=== PATIENT | male | born 2005 | race African-American/Black ===

== ENCOUNTER 2025-03-24 21:46 | Emergency (ER) | payer OTHER ==
[2025-03-24] MEDS ORDERED: levETIRAcetam 500 MG (5 mL) VIAL ONE (22:10)
[2025-03-24 22:33] LABS: Acetaminophen Less than 10 mcg/mL (Less than 10); Salicylate Less than 8.0 mg/dL (Less than 8.0)
[2025-03-24 22:34] LABS: ALT (SGPT) 23 U/L (Less than 45); AST (SGOT) 26 U/L (11-34); Albumin 4.1 g/dL (3.1-4.5); Alkaline Phosphatase 125 U/L (40-110); Anion Gap 13 mmol/L (10-20); BUN (Urea Nitrogen) 13 mg/dL (8.9-20.6); Bilirubin, Total 0.3 mg/dL (0.3-1.2); Calc. Creatinine Clearance 0 mL/min (70-130); Calcium 9.5 mg/dL (7.8-10.44); Carbon Dioxide 24 mmol/L (22-29); Chloride 108 mmol/L (98-107); Globulin 3.0 g/dL (2.4-3.5); Glucose 108 mg/dL (70-105); Potassium 3.9 mmol/L (3.5-5.1); Sodium 141 mmol/L (136-145)
[2025-03-24 23:16] LABS: Hematocrit 42.9 % (38.8-50.0); Hemoglobin 14.4 g/dL (13.5-17.5); Mean Corpuscular Hemoglobin 27.9 pg (27.0-33.0); Mean Corpuscular Volume 83.0 fL (81.2-95.1); Platelet Count 262 10x3/uL (150-450); Red Blood Cell (RBC) Count 5.17 10x6/uL (4.32-5.72); White Blood Cell (WBC) Count 6.21 10x3/uL (3.5-10.5)
[2025-03-24 23:54] LABS: MDiff Complete? YES
== END 2025-03-24 22:34 | disposition home or self-care (01) ==
LOC: CSHERS 21:46
DX: G40.909 Epilepsy, unspecified, not intractable, without status epilepticus (principal)
CPT/HCPCS: 36415; 80053; 80177; 80307; 85025; 93005; 96365; J1953